=== PATIENT | male | born 1975 | race Caucasian/White ===

== ENCOUNTER → 2017-04-11 | Outpatient (CLI) | payer SELFPAY ==
--- NOTE | 2017-04-11 17:39 | MR ---
MR right hand with and without contrast HISTORY: Infected cat bite of index finger Multiplanar multisequence imaging obtained through the right hand with attention to the second digit, postcontrast images status post 10 cc Gadavist IV. No comparisons Abnormal increased signal on T2-weighted sequences, intermediate signal on T1-weighted images at the level of the distal phalanx of the second digit of the right hand. There is some local soft tissue ed cy present. There is enhancement on contrast administration. No evident abscess. IMPRESSION: Findings are compatible with osteomyelitis of the distal phalanx of the second digit of t he right hand.
== END | disposition home or self-care (01) ==
LOC: RADMRIMAIN 07:02
PROVIDERS: ATTEND Internal Medicine Infectious Disease
DX: S61.250A Open bite of right index finger without damage to nail, initial encounter (principal)
CPT/HCPCS: 73220; A9581